=== PATIENT | female | born 1980 | race African-American/Black ===

== ENCOUNTER 2016-06-16 18:28 | Emergency (ER) | payer OTHER ==
--- NOTE | ~2016-06-16 | CR63 ---
[facility] A Service of [facility] RADIOLOGY TEXT RESULTS PATIENT: DON MCCULLOUGH LOCATION: CFTX : 78 UNIT #: [id number] AGE: [address]: Meghann Celis MD SEX: F ORDER DR: [id number] [id number] [place], [place] [address] [id number] MR#: [id number] #: [id number] NAME: DON MCCULLOUGH : 1980 SEX: F STUDY DATE/TIME: 06/16/2016 17:44 UNIT: [facility] ROOM: STUDY DESCRIPTION: CR Chest 2 View Attending Physician: Er Doctor Axel Referring Physician: Primary Care Physician No Ordering Physician: Meghann Celis M.D. Primary Care Physician: No Primary Care Physician MEDICAL IMAGING REPORT This report is preliminary unless electronic signature is present EXAM Two-view chest, 06/16/16 INDICATIONS A 36-year-old female with shortness of air, fever, chills, chest pain symptoms 2 days, hypertension FINDINGS 2 views of the chest were performed. COMPARISON 03/14/2016 FINDINGS Cardiac silhouette is within normal limits. The vascularity is unremarkable. Lungs are clear. No pneumothorax or effusion. There is gaseous distension of the stomach. IMPRESSION Negative chest. Dictated by... Osiel Roth M.D. THIS IS AN ELECTRONICALLY VERIFIED REPORT Osiel Roth M.D. at 06/17/2016 10:17 AM Judy TD: 06/17/2016 00:31 JOB #: [id number] [facility] A Service [facility] RADIOLOGY TEXT RESULTS PATIENT: DON MCCULLOUGH LOCATION: CFTX : 78 UNIT #: [id number] AGE: [address]: Meghann Celis MD SEX: F ORDER DR: MEDICAL IMAGING REPORT COPY
[2016-06-16 16:18] LABS: INFLUENZA A NEG (NEG); INFLUENZA B NEG (NEG)
== END 2016-06-16 18:35 | disposition home or self-care (01) ==
LOC: CFTX 18:28
PROVIDERS: Emergency Medicine
DX: J11.1 Influenza due to unidentified influenza virus with other respiratory manifestations (principal); J20.9 Acute bronchitis, unspecified; Z88.6 Allergy status to analgesic agent
CPT/HCPCS: 71020; 87651; 87804; 87880; 99284